=== PATIENT | female | born 1995 | race Two or more races ===

== ENCOUNTER 2019-09-05 22:19 | Emergency (ER) | payer SELFPAY ==
[~2019-09-05] VITALS: Ht 147.3 cm; Wt 58.7 kg
[2019-09-05 22:26] VITALS: Ht 147.3 cm; Wt 58.7 kg
[2019-09-05 23:35] VITALS: BP 134/79
== END 2019-09-05 23:35 | disposition home or self-care (01) ==
LOC: ED 22:19
DX: L50.9 Urticaria, unspecified (principal)
CPT/HCPCS: J1200; J2930; J3490